=== PATIENT | male | born 1940 | race Caucasian/White ===

== ENCOUNTER 2017-06-04 11:54 | Emergency (ER) | payer MEDICARE ==
[~2017-06-04] VITALS: Ht 184 cm; Wt 80.9 kg
[~2017-06-04 11:54] MED LIST: MEGACE 40MG40 MG/TAB PO; PROSCAR 5MG5 MG PO; PROSCAR5 MG PO; ZOCOR10 MG PO
[2017-06-04 12:00] VITALS: BP 157/77; PULSE 76; TEMP 97.8
== END 2017-06-04 13:22 | disposition home or self-care (01) ==
LOC: COL.ER 11:54
DX: S83.92XA Sprain of unspecified site of left knee, initial encounter (principal); F17.210 Nicotine dependence, cigarettes, uncomplicated; W54.1XXA Struck by dog, initial encounter

== ENCOUNTER 2018-01-26 13:24 | Observation (INO) | payer MEDICARE ==
[2018-01-26] VITALS (10 sets, daily range): BP systolic 100–156; BP diastolic 53–82; PULSE 58–85; TEMP 97.2–98.4
[~2018-01-26] VITALS: Ht 180.3 cm; Wt 84.0 kg
[2018-01-26 15:40] LABS: COLLECTION METHOD CATHETER
[2018-01-26 15:51] LABS: PH 6 (5-8); SQUAMOUS EPITHELIAL 0-2 /hpf; URINE APPEARANCE Clear; URINE BACTERIA Rare /hpf; URINE BILIRUBIN Negative (NEGATIVE); URINE BLOOD 3+ (NEGATIVE); URINE COLOR Yellow; URINE GLUCOSE Negative (NEGATIVE); URINE KETONE Negative (NEGATIVE); URINE LEUKOCYTE ESTERASE Negative (NEGATIVE); URINE NITRATE Negative (NEGATIVE); URINE PROTEIN(semi-quant) 1+ (NEGATIVE); URINE RBC 20-50 /hpf; URINE UROBILINOGEN Negative (NEGATIVE)
[2018-01-27 00:12] VITALS: BP 134/69; PULSE 74; TEMP 98.5
[2018-01-27 03:46] VITALS: BP 147/86; PULSE 74; TEMP 97.6
[2018-01-27 07:08] VITALS: BP 124/69; PULSE 76; TEMP 98.7
== END 2018-01-27 12:00 | disposition home or self-care (01) ==
LOC: COL.ER 13:24 → SURG 15:07
PROVIDERS: Emergency Medicine
DX: N30.41 Irradiation cystitis with hematuria (principal); N32.0 Bladder-neck obstruction
CPT/HCPCS: C1769; G0378; G0379; J0690; J2704; J3010; J7030

== ENCOUNTER 2018-05-10 21:13 | Emergency (ER) | payer MEDICARE ==
[~2018-05-10] VITALS: Ht 177.8 cm; Wt 79.5 kg
[2018-05-10 21:19] VITALS: BP 173/95; TEMP 98
[2018-05-10] MEDS ORDERED: NORCO 325 MG-51 TAB PO (22:27)
[2018-05-10 23:15] VITALS: PULSE 70
== END 2018-05-10 23:17 | disposition home or self-care (01) ==
LOC: COL.ER 21:13
DX: S52.532A Colles' fracture of left radius, initial encounter for closed fracture (principal); I10 Essential (primary) hypertension; Z85.46 Personal history of malignant neoplasm of prostate; W00.0XXA Fall on same level due to ice and snow, initial encounter
CPT/HCPCS: Q4021

== ENCOUNTER 2018-12-25 12:03 | Day surgery (SDC) | payer MEDICARE ==
[~2018-12-25] VITALS: Ht 172.7 cm; Wt 76.7 kg
[~2018-12-25 12:03] MED LIST changes: +NORCO 325 MG-51 TAB PO
[2018-12-25] MEDS ORDERED: PREDFORTE5ML OU (12:30)
[2018-12-25] MEDS ORDERED: LEVSIN0.125 M1 PO (12:30)
[2018-12-25 12:32] VITALS: BP 146/80; PULSE 51; TEMP 97.6
[2018-12-25 15:55] VITALS: BP 183/87; PULSE 75; TEMP 97.7
--- NOTE | 2018-12-25 15:55 | NUR ---
The patient arrived back to [place] [facility] from the recovery room at this time. The patient requests to try saltine crackers and apple juice at this time. The patient's post operative vital signs were started at this time. The patient denies any pain or nausea at this time. Call light is within reach at this time. Will continue to monitor the patient.
[2018-12-25 16:10] VITALS: BP 156/64; PULSE 79
--- NOTE | 2018-12-25 16:10 | NUR ---
The patient appears to tolerate the food and drink well. The patient's is now at his bedside and brought him an apple from home which he appears to be tolerating well. The patient continues to deny any pain or nasuea. Vital signs appear stable. The patient reports that he "had the urge to pee and then it just came out". Will continue to monitor the patient.
[2018-12-25 16:25] VITALS: BP 141/66; PULSE 75
--- NOTE | 2018-12-25 16:25 | NUR ---
The patient voices a desire to be discharged home. Vital signs remain stable. The patient's IV to his right anecubital was removed and a pressure dressing was applied to the site.
--- NOTE | 2018-12-25 16:32 | NUR ---
Discharge instrucitons were reviewed with the patient and his at this time. They both verbalized understanding and have no questions for the nurse at this time. The nurse instructed the patient to get dressed and notify the staff when he is ready to be escorted out.
--- NOTE | 2018-12-25 16:40 | NUR ---
The patient requested to ambulate out independently and did so using a steady gait and appeared to tolerate the activity well. The patient's belongings and discharge paperwork were sent with him. The patient's is present to drive him home.
== END 2018-12-25 16:40 | disposition home or self-care (01) ==
LOC: SDCO 12:03
DX: N30.41 Irradiation cystitis with hematuria (principal); Z85.46 Personal history of malignant neoplasm of prostate; F17.210 Nicotine dependence, cigarettes, uncomplicated; L40.9 Psoriasis, unspecified; E78.5 Hyperlipidemia, unspecified; Z79.899 Other long term (current) drug therapy; Z90.79 Acquired absence of other genital organ(s); H54.7 Unspecified visual loss; G61.0 Guillain-Barre syndrome
CPT/HCPCS: J0360; J0690; J2405; J2704; J7120

== ENCOUNTER 2021-08-19 08:14 | Outpatient (CLI) | payer MEDICARE ==
[~2021-08-19] VITALS: Ht 180.3 cm; Wt 78.0 kg
[~2021-08-19 08:14] MED LIST changes: +LEVSIN0.125 M1 PO; +PREDFORTE5ML OU
[2021-08-19 08:44] VITALS: BP 105/64; PULSE 48; TEMP 98.5
[2021-08-19] MEDS ORDERED: COZAAR 50MG50 MG/TAB PO (08:50)
[2021-08-19] MEDS ORDERED: BYSTOLIC10 MG PO (08:51)
[2021-08-19 11:00] VITALS: BP 159/76; PULSE 37
--- NOTE | 2021-08-19 11:00 | NUR ---
Pt is ready for departure. I reviewed dc and fu instructions with pt who verbalized understanding. Loop insertion site covered with clean dry and intact gauze dressing. no swelling noted. pt is amb to exit with Antoine MALLORY.
== END 2021-08-19 11:10 | disposition home or self-care (01) ==
LOC: COL.CAR 08:14
DX: R55 Syncope and collapse (principal); I49.3 Ventricular premature depolarization; R00.0 Tachycardia, unspecified; I49.1 Atrial premature depolarization; I11.9 Hypertensive heart disease without heart failure; R53.83 Other fatigue; Z79.899 Other long term (current) drug therapy
CPT/HCPCS: 27886; C1764

== ENCOUNTER 2021-11-27 03:23 | Inpatient (IN) | payer MEDICARE ==
[~2021-11-27] VITALS: Ht 184.2 cm; Wt 81.8 kg
[~2021-11-27 03:23] MED LIST changes: +BYSTOLIC10 MG PO; +COZAAR 50MG50 MG/TAB PO
[2021-11-27 03:44] LABS: BASO # 0.1 K/mm3 (0.0-0.2); BASO % 0.9 % (0.0-2.0); EOS # 0.2 K/mm3 (0.0-0.7); EOS % 2.7 % (0.0-4.0); GRAN # 2.8 K/mm3 (1.4-6.5); GRAN % 51.9 % (42.2-75.2); HEMATOCRIT 38.9 % (42.0-52.0); HEMOGLOBIN 13.2 g/dl (13.5-18.0); LYMPH # 1.7 K/mm3 (1.2-3.4); LYMPH % 30.4 % (20.0-51.0); MEAN CELL VOLUME 99 fl (80.0-100.0); MEAN CORPUSCULAR HEMOGLOBIN 33 pg (27-31); MEAN CORPUSCULAR HGB CONC 34 g/dl (33.0-37.0); MEAN PLATELET VOLUME 11.8 fl (7.4-10.4); MONO # 0.8 K/mm3 (0.1-0.6); MONO % 13.9 % (1.7-9.3); PLATELET COUNT 182 K/mm3 (130-400); RED BLOOD COUNT 3.95 M/mm3 (4.20-5.60); REDCELL DISTRIBUTION WIDTH-CV 12.3 % (11.5-14.5)
[2021-11-27 04:22] LABS: INR 0.9 (0.8-3.0); PROTHROMBIN TIME 10.7 SECONDS (9.7-12.8)
[2021-11-27 04:33] LABS: CALCIUM 9.2 mg/dL (8.4-10.2); CREATININE, serum 1.36 mg/dL (0.72-1.25)
[2021-11-27 06:01] VITALS: BP 107/65; PULSE 71
[2021-11-27 07:30] VITALS: BP 136/62; PULSE 61; TEMP 99
--- NOTE | 2021-11-27 11:38 | NUR ---
SW met with patient to complete intake. patient states that he lives in [facility] with his Susana Ernst [phone]. Patient does not utilize DME, is independent with ADL's and does not utilize HH services at this time. PCP is Dr. Segovia, and pharmacy is [facility]. DPOA/HC is and alt is Kori Horacio [phone]. Patient plans to return to his home upon DC and has no questions or concerns with doing so. SW will continue to follow. DC plan: home
[2021-11-27 12:11] VITALS: BP 116/52; PULSE 60; TEMP 98.7
[2021-11-27 15:59] VITALS: BP 138/105; PULSE 54; TEMP 98
[2021-11-27 16:11] VITALS: BP 143/63
[2021-11-27 20:05] VITALS: BP 150/75; PULSE 65; TEMP 98.5
[2021-11-28] VITALS (14 sets, daily range): BP systolic 102–153; BP diastolic 45–93; PULSE 34–76; TEMP 97.7–99.3
--- NOTE | 2021-11-28 06:54 | NUR ---
pt on RA, NPO for surgery this am, splint to left ankle, CMS intact to toes. IVF infusing per PIV @60cc/hr, oxycodone given x2 for pain.
--- NOTE | 2021-11-28 07:15 | NUR ---
PT RESTING IN THE BED, GOING TO SURGERY THIS AM, NO FURTHER NEEDS AT THIS TIME
--- NOTE | 2021-11-28 11:02 | NUR ---
RECVD PT FROM PACU, PT IS AOX4, ON 2L NC, AT THE BEDSIDE, PT RECEIVED A BLOCK NO PAIN AT THIS TIME, BED IN LOW POSITION AND CALL LIGHT IN HAND, ADVANCING HIS DIET
--- NOTE | 2021-11-28 11:21 | NUR ---
PT C/O NO PAIN, ORDERING HIS LUNCH, AT THE BEDSIDE, ON RA @ 95%
[2021-11-29 03:59] VITALS: BP 107/47; PULSE 70; TEMP 98.2
--- NOTE | 2021-11-29 05:55 | NUR ---
pt reports tylenol controlling pain, was unable to sleep, contacted Florencia Fenton APRN, melatonin started and pt able to rest. CMS intact to LLE, cast CDI, extremety elevated on pillows, refused ice pack.
[2021-11-29 07:22] VITALS: BP 119/36; TEMP 97.7
--- NOTE | 2021-11-29 10:32 | NUR ---
PATIENT ALERT AND ORIENTED X4. VSS. PATIENT DENIES PAIN AT THIS TIME. IV TO RIGHT AC SALINE LOCKED. PATIENT INCONTINENT ON ARRIVAL. PATIENT CLAIMS HE USES THE URINAL AND COMMODE. LLE ELEVATED ON 2 PILLOWS. PATIENT RESTING IN BED WITH BED ALARM ACTIVATED AND CALL LIGHT NEAR.
[2021-11-29 12:00] VITALS: BP 125/58; PULSE 59; TEMP 98.6
[2021-11-29 12:51] VITALS: BP 110/84; PULSE 106; TEMP 97.8
[2021-11-29 15:51] VITALS: BP 92/49; PULSE 64; TEMP 97.6
--- NOTE | 2021-11-29 16:13 | NUR ---
YVONNE met with patient's Susana and family friend about plan of care. Susana asks to meet in private prior to meeting with the patient. Susana states that she suffers from severe depression and anxiety and the thought of the patient going home and falling is more than she can cope with.She states that she see a therapist and is on medication to help with her symptoms. YVONNE provided emotional support. Informed Susana on what services that would be available such as home health and private duty caregivers and DME that would be useful. Educated her that at this time the patient is to functional to go to a SNF. Cornelius with PT stepped into the conversation and detailed the patients progress and how well he is doing. Cornelius suggests that they get a commode for the bedside and to rearange the home to where the patient can stay on the first level. YVONNE educated Susana that the commode and a smalled bed for the first level would not be covered under medicare, but that i will order him a walker and HH. Susana is provided the [employer] list of HH agencies and chose [facility]. YVONNE informed her that she can add private duty caregivers on at a later time. Susana continues to express high levels of anxiousness. YVONNE met with patient and patient's at bedside. Patient is agreeable to going home with HH and adding private duty care at a later time should they need it. YVONNE educated the patient that this is going to be a life adjustment for both him and Susana to which he verbally agreed. Patient's HH referral faxed to [facility]. Patient's walker order faxed to [facility].
[2021-11-29 20:46] VITALS: BP 114/59; PULSE 59; TEMP 97.6
--- NOTE | 2021-11-29 21:10 | NUR ---
PT A&OX4 RESTING IN BED. MEDS GIVEN AND ASSESSMENT COMPLETE. PT RATES PN A 2/10 IN LT ANKLE. SPLINT TO LLE CDI AND ELEVATED W [address] AND VS STABLE. FALL PRECAUTIONS IN PLACE. NO NEEDS AT THIS TIME. CALL LIGHT WITHIN REACH.
[2021-11-30 00:14] VITALS: BP 139/73; PULSE 75; TEMP 97.2
[2021-11-30 05:02] VITALS: BP 119/69; PULSE 62; TEMP 97.9
[2021-11-30 06:39] LABS: CALCIUM 8.7 mg/dL (8.4-10.2); CREATININE, serum 1.05 mg/dL (0.72-1.25); POTASSIUM 4.2 mmol/L (3.5-4.5)
[2021-11-30 07:09] LABS: BASO % 0.7 % (0.0-2.0); EOS # 0.2 K/mm3 (0.0-0.7); GRAN # 3.4 K/mm3 (1.4-6.5); GRAN % 62.1 % (42.2-75.2); HEMOGLOBIN 10.7 g/dl (13.5-18.0); LYMPH # 0.8 K/mm3 (1.2-3.4); LYMPH % 14.1 % (20.0-51.0); MEAN CELL VOLUME 99 fl (80.0-100.0); MEAN CORPUSCULAR HEMOGLOBIN 33 pg (27-31); MEAN CORPUSCULAR HGB CONC 33 g/dl (33.0-37.0); MONO % 18.7 % (1.7-9.3); PLATELET COUNT 147 K/mm3 (130-400); RED BLOOD COUNT 3.24 M/mm3 (4.20-5.60)
[2021-11-30 07:12] LABS: HEMATOCRIT 32.1 % (42.0-52.0)
[2021-11-30 07:49] VITALS: BP 129/60; PULSE 55; TEMP 98
[2021-11-30] MEDS ORDERED: ASPI325T6 PO (07:51)
[2021-11-30] MEDS ORDERED: FLORINEF ACETA0.1 MG PO (07:52)
--- NOTE | 2021-11-30 10:01 | NUR ---
wafer polishing lead worker met with patient to provided him with the [facility].IM form. Education provided and patient verbalized his agreement with discharge plan for today. Patients signed original placed in the patient's chart and copy provided to the patient. Patient asks about the bedside commode and what the cost would be for out of pocket. SW contacted [facility] to confirm that they did get the patient's walker order. Rep confirmed that they did get it and it will be delivered this morning. SW asked about pricing on commode and was quotes $137 plus tax. Patient is in agreement with ordering one and DME company notified. DME company will deliver commode when they deliver the patient's walker.
[2021-11-30 12:23] VITALS: BP 117/62; PULSE 60; TEMP 97.6
--- NOTE | 2021-11-30 13:24 | NUR ---
Patients clinical updates and discharge orders faxed to [facility].
--- NOTE | 2021-11-30 16:18 | NUR ---
DISCHARGE INSTRUCTIONS PROVIDED. PATIENT EDUCATION GIVEN. IV DC'D. PATIENT AND FAMILY DENIES ANY QUESTIONS OR CONCERNS. PATIENT ESCORTED OUT VIA WHEELCHAIR.
== END 2021-11-30 16:15 | disposition home health service (06) | DRG 493 ==
LOC: COL.ER 03:23 → SURG 04:32
PROVIDERS: Emergency Medicine; Orthopaedic Surgery; Student in an Organized Health Care Education/Training Program; ADMIT Internal Medicine
PROC: 0SSGXZZ Reposition Left Ankle Joint, External Approach (ICD-10-PCS; 2021-11-27)
PROC: 2W3RX1Z Immobilization of Left Lower Leg using Splint (ICD-10-PCS; 2021-11-27)
PROC: 0QSH04Z Reposition Left Tibia with Internal Fixation Device, Open Approach (ICD-10-PCS; 2021-11-28)
PROC: 0QSK04Z Reposition Left Fibula with Internal Fixation Device, Open Approach (ICD-10-PCS; principal; 2021-11-28 08:00)
DX: S82.852A Displaced trimalleolar fracture of left lower leg, initial encounter for closed fracture (principal); E87.2 Acidosis; N17.9 Acute kidney failure, unspecified; Z20.822 Contact with and (suspected) exposure to COVID-19; F17.210 Nicotine dependence, cigarettes, uncomplicated; I95.9 Hypotension, unspecified; D64.9 Anemia, unspecified; W01.0XXA Fall on same level from slipping, tripping and stumbling without subsequent striking against object, initial encounter; I49.3 Ventricular premature depolarization; I12.9 Hypertensive chronic kidney disease with stage 1 through stage 4 chronic kidney disease, or unspecified chronic kidney disease; N18.9 Chronic kidney disease, unspecified; Z88.1 Allergy status to other antibiotic agents; Z90.79 Acquired absence of other genital organ(s); Z85.46 Personal history of malignant neoplasm of prostate; Y93.89 Activity, other specified; Y92.89 Other specified places as the place of occurrence of the external cause
CPT/HCPCS: A9284; C1713; J0690; J1100; J2250; J2405; J2704; J2795; J3010; J7030